=== PATIENT | male | born 1950 | race Caucasian/White ===

== ENCOUNTER → 2022-06-15 | Outpatient (CLI) | payer MEDICARE, OTHER, SELFPAY ==
--- NOTE | 2022-06-15 06:50 | CT_ITS ---
STUDY: CT MAXILLOFACIAL SINUSES REASON FOR EXAM: Male, 72 years old. SINUSITIS RADIATION DOSAGE (If Supplied By Facility): CTDIvol = ( 33.06 ) mGy, DLP = ( 829.72 ) mGycm TECHNIQUE: The patient was scanned in a multi detector CT scanner. High resolution axial imaging was performed without the administration of intravenous contrast material. Sagittal and coronal images were reconstructed. Individualized dose optimization techniques were used for this CT. COMPARISON: None. FINDINGS: FRONTAL SINUSES: Normal aeration, without mucosal inflammatory disease. ETHMOIDAL SINUSES: Partial opacification of the ethmoid sinuses bilaterally. MAXILLARY SINUSES: Partial opacification of the left maxillary sinus. There is compromise of the left ostiomeatal complex due to mucosal hypertrophy. SPHENOIDAL SINUSES: Normal aeration, without mucosal inflammatory disease. Mucosal thickening of the right mastoid air cells. There is patency of the bilateral maxillary infundibuli with normal uncinate processes, ethmoid bullae, and hiatus semilunaris. Normal bilateral middle turbinates. There is hypertrophy of the right inferior nasal turbinate. There is a left sided nasal septal deviation, but without a nasal septal spur. There is patency of the bilateral nasal airways. The visualized osseous structures are normal. The visualized bilateral orbital contents are normal. CT/Sinus/Facial Bone IMPRESSION: Partial opacification of the left maxillary sinus compromise of the left ostiomeatal complex due to mucosal hypertrophy. Partial opacification of the ethmoid sinuses. Electronically Signed: Dennys Garcia MD at 8:37 EDT ,
== END | disposition home or self-care (01) ==
LOC: CT 06:46
PROVIDERS: PCP Family Medicine; Referring Provider Otolaryngology; Visit Provider Otolaryngology
DX: J32.9 Chronic sinusitis, unspecified (principal)
CPT/HCPCS: 70486